=== PATIENT | female | born 1955 | race Caucasian/White ===

== ENCOUNTER 2017-04-24 13:33 | Emergency (ER) | payer MEDICARE ==
[2017-04-24 14:48] LABS: APPEARANCE HAZY (CLEAR); COLOR DK YELLOW (YELLOW); SPECIFIC GRAVITY 1.015 (1.005-1.020)
[2017-04-24 14:49] LABS: BASOPHILS 0.6 % (0-2); EOSINOPHILS 5.8 % (0-7); HEMATOCRIT 45.4 % (36.0-48.0); IMMATURE GRANULOCYTES 0.2 % (0-5); MCH 34.2 pg (26.0-34.0); MCHC 35.2 g/dL (31.0-37.0); MEAN PLATELET VOLUME 10.5 fL (7.4-10.4); MONOCYTES 8.1 % (2-11); NEUTROPHILS 51.3 % (40-80); PLATELET COUNT 172 10x3/uL (130-400); RBC 4.68 10x6/uL (4.00-5.40); RDW 12.8 % (11.5-14.5); WBC 8.8 10x3/uL (4.8-10.8)
[2017-04-24 14:49] LABS: BILIRUBIN NEGATIVE (NEGATIVE); GLUCOSE NEGATIVE (NEGATIVE); KETONE NEGATIVE (NEGATIVE); NITRITE POSITIVE (NEGATIVE); PROTEIN NEGATIVE (NEGATIVE); UROBILINOGEN NORMAL (NORMAL)
[2017-04-24 14:51] LABS: BACTERIA MANY /hpf (NONE SEEN); EPITHELIAL CELLS 0-5 /hpf (0-5); WHITE CELLS - URINE 0-5 /hpf (0-5)
[2017-04-24 15:03] LABS: ALBUMIN 3.5 g/dL (3.4-5.0); ALKALINE PHOSPHATASE 97 U/L (46-116); ALT (SGPT) 42 U/L (10-68); BILIRUBIN - TOTAL 0.18 mg/dL (0.2-1.3); CALC OSMOLALITY 280 mosm/kg (275-300); CALCIUM 8.8 mg/dL (8.5-10.1); CARBON DIOXIDE 28.4 mmol/L (21.0-32.0); CHLORIDE - SERUM 103 mmol/L (98-107); CREATININE - SERUM 0.7 mg/dL (0.6-1.3); GLUCOSE 156 mg/dL (74-106); POTASSIUM - SERUM 3.7 mmol/L (3.5-5.1); PROTEIN - SERUM 7.2 g/dL (6.4-8.2); SODIUM 139 mmol/L (136-145); UREA NITROGEN 12 mg/dL (7-18); eGFR NON AFRICAN AMERICAN 90 mL/min (90-120)
[2017-04-24 15:04] LABS: DIGOXIN 0.95 ng/mL (0.90-2.00); LIPASE 136 U/L (73-393); PHENYTOIN (DILANTIN) 11.6 ug/mL (10.0-20.0); THYROID STIMULATING HORMONE 1.01 uIU/mL (0.36-3.74)
== END 2017-04-24 16:39 | disposition home or self-care (01) ==
LOC: D.ER 13:33
PROVIDERS: Emergency Medicine
DX: K43.2 Incisional hernia without obstruction or gangrene (principal); G43.909 Migraine, unspecified, not intractable, without status migrainosus; K59.00 Constipation, unspecified; K21.9 Gastro-esophageal reflux disease without esophagitis; F17.200 Nicotine dependence, unspecified, uncomplicated

== ENCOUNTER 2017-06-27 16:07 | Emergency (ER) | payer MEDICARE | END 2017-06-27 16:08 | disposition home or self-care (01) | LOC: D.ER 16:07 | DX: M54.5 Low back pain (principal); K21.9 Gastro-esophageal reflux disease without esophagitis; F17.200 Nicotine dependence, unspecified, uncomplicated ==

== ENCOUNTER → 2018-04-21 14:06 | Outpatient (CLI) | payer MEDICARE ==
[~2018-04-21 14:06] MED LIST: BUPROPION HCL75 MG; CO Q-1030 MG; CYMBALTA20 MG; DILANTIN30 MG; LANOXIN125 MCG; LEVOFLOXACIN500 MG PO; PHENOBARBI20 MG/5 ML; PRAVACHOL20 MG; PROVENTIL/2.5 MG/3 M; REQUIP0.25 MG; TIROSINT13 MCG
== END | disposition home or self-care (01) ==
LOC: D.CT 14:06
DX: R93.89 Abnormal findings on diagnostic imaging of other specified body structures (principal)

== ENCOUNTER 2018-05-09 19:38 | Emergency (ER) | payer MEDICARE ==
[~2018-05-09] VITALS: Ht 152.4 cm; Wt 70.5 kg
[2018-05-09 20:06] VITALS: Ht 152.4 cm; Wt 70.5 kg
[2018-05-09] MEDS ORDERED: DILANTIN30 MG (20:09)
[2018-05-09] MEDS ORDERED: PHENOBARBI20 MG/5 ML (20:09)
[2018-05-09] MEDS ORDERED: TIROSINT13 MCG (20:09)
[2018-05-09] MEDS ORDERED: LANOXIN125 MCG (20:09)
[2018-05-09] MEDS ORDERED: PROVENTIL/2.5 MG/3 M (20:09)
[2018-05-09] MEDS ORDERED: BUPROPION HCL75 MG (20:09)
[2018-05-09] MEDS ORDERED: PRAVACHOL20 MG (20:09)
[2018-05-09] MEDS ORDERED: REQUIP0.25 MG (20:10)
[2018-05-09] MEDS ORDERED: CYMBALTA20 MG (20:10)
[2018-05-09] MEDS ORDERED: CO Q-1030 MG (20:10)
[2018-05-09 20:56] LABS: BASOPHILS 0.5 % (0-2); EOSINOPHILS 3.2 % (0-7); HEMATOCRIT 45.7 % (36.0-48.0); HEMOGLOBIN 16.6 g/dL (12-16); IMMATURE GRANULOCYTES 0.3 % (0-5); MCH 34.2 pg (26.0-34.0); MCHC 36.3 g/dL (31.0-37.0); MONOCYTES 7.9 % (2-11); NEUTROPHILS 62.1 % (40-80); PLATELET COUNT 185 10x3/uL (130-400); RBC 4.86 10x6/uL (4.00-5.40); WBC 6.6 10x3/uL (4.8-10.8)
[2018-05-09 21:04] LABS: APPEARANCE HAZY (CLEAR); BILIRUBIN NEGATIVE (NEGATIVE); COLOR YELLOW (YELLOW); GLUCOSE 1000 mg/dL (NEGATIVE); KETONE NEGATIVE (NEGATIVE); NITRITE POSITIVE (NEGATIVE); PROTEIN NEGATIVE (NEGATIVE); UROBILINOGEN NORMAL (NORMAL)
[2018-05-09 21:05] LABS: BACTERIA MANY /hpf (NONE SEEN); EPITHELIAL CELLS 0-5 /hpf (0-5); RED CELLS - URINE 0-5 /hpf (0-5)
[2018-05-09 21:23] LABS: KETONE - SERUM NEGATIVE (NEGATIVE)
[2018-05-09 21:29] LABS: ALBUMIN 3.3 g/dL (3.4-5.0); ALKALINE PHOSPHATASE 139 U/L (46-116); BILIRUBIN - TOTAL 0.45 mg/dL (0.2-1.3); CALCIUM 8.3 mg/dL (8.5-10.1); CARBON DIOXIDE 28.4 mmol/L (21.0-32.0); CHLORIDE - SERUM 93 mmol/L (98-107); CREATININE - SERUM 0.8 mg/dL (0.6-1.3); POTASSIUM - SERUM 4.2 mmol/L (3.5-5.1); SODIUM 132 mmol/L (136-145); UREA NITROGEN 10 mg/dL (7-18); eGFR NON AFRICAN AMERICAN 77 mL/min (90-120)
[2018-05-09 22:07] LABS: CALC OSMOLALITY 283 mosm/kg (275-300)
[2018-05-09 22:08] LABS: ALT (SGPT) 44 U/L (10-68); PROTEIN - SERUM 7.2 g/dL (6.4-8.2)
[2018-05-09 22:10] LABS: GLUCOSE 463 mg/dL (74-106)
[2018-05-09] MEDS ORDERED: LEVOFLOXACIN500 MG PO (23:53)
[2018-05-10] VITALS: BP 126/74
== END 2018-05-10 00:01 | disposition home or self-care (01) ==
LOC: D.ER 19:38
PROVIDERS: Family Medicine
DX: N39.0 Urinary tract infection, site not specified (principal); M54.5 Low back pain; E11.65 Type 2 diabetes mellitus with hyperglycemia; G43.909 Migraine, unspecified, not intractable, without status migrainosus; J44.9 Chronic obstructive pulmonary disease, unspecified; F17.200 Nicotine dependence, unspecified, uncomplicated

== ENCOUNTER → 2018-08-22 12:30 | Outpatient (CLI) | payer MEDICARE ==
[2018-05-09 20:06] VITALS: BMI 30.3
== END | disposition home or self-care (01) ==
LOC: D.CT 12:30
PROVIDERS: ATTEND Family Medicine
DX: R10.9 Unspecified abdominal pain (principal)

== ENCOUNTER 2019-03-28 19:06 | Emergency (ER) | payer MEDICARE ==
[~2019-03-28] VITALS: Ht 152.4 cm; Wt 66.4 kg
[2019-03-28 19:33] VITALS: Ht 152.4 cm; Wt 66.4 kg
[2019-03-28] MEDS ORDERED: ERYTHROMYCIN OPT1 GM EACH EYE (20:46)
[2019-03-28 21:02] VITALS: BP 127/63
== END 2019-03-28 21:02 | disposition home or self-care (01) ==
LOC: D.ER 19:06
DX: H00.024 Hordeolum internum left upper eyelid (principal); F17.210 Nicotine dependence, cigarettes, uncomplicated; E11.9 Type 2 diabetes mellitus without complications; I11.0 Hypertensive heart disease with heart failure; I50.9 Heart failure, unspecified